=== PATIENT | female | born 2000 | race Caucasian/White ===

== ENCOUNTER 2021-04-19 03:07 | Emergency (ER) | payer BC, OTHER ==
[~2021-04-19] VITALS: Ht 149.9 cm; Wt 59.0 kg
[2021-04-19 03:55] LABS: BASOPHILS ABSOLUTE AUTO 0.04 K/mm3 (0.00-0.23); BASOPHILS PERCENT AUTO 0 % (0-2); EOSINOPHILS ABSOLUTE AUTO 0.09 K/mm3 (0.00-0.68); EOSINOPHILS PERCENT AUTO 1 % (0-6); Hemoglobin 14.5 g/dL (11.5-16.0); IMMATURE GRAN ABSOLUTE AUTO 0.06 K/mm3 (0.00-0.10); IMMATURE GRAN PERCENT AUTO 0 % (0-1); LYMPHOCYTES ABSOLUTE AUTO 0.72 K/mm3 (0.84-5.20); LYMPHOCYTES PERCENT AUTO 4 % (21-46); MONOCYTES ABSOLUTE AUTO 1.21 K/mm3 (0.16-1.47); MONOCYTES PERCENT AUTO 7 % (4-13); Mean Corpuscular HGB Conc 33.7 g/dL (31.5-36.5); Mean Corpuscular Volume 89 fL (80-100); Mean Platelet Volume 9.1 fL (9.1-12.4); NEUTROPHILS ABSOLUTE AUTO 14.54 K/mm3 (1.96-9.15); NEUTROPHILS PERCENT AUTO 87 % (41-73); Platelet Count 312 K/mm3 (150-400); RDW Coefficient Variation 11.9 % (11.7-14.2); RDW Standard Deviation 38.4 fL (35.1-46.3); Red Blood Cell Count 4.83 M/mm3 (3.80-5.20); White Blood Cell Count 16.66 K/mm3 (4.00-11.30)
[2021-04-19 04:15] LABS: Alanine Aminotransfer (ALT/SGP 32 U/L (12-78); Albumin, Blood 3.5 g/dL (3.4-5.0); Albumin/Globulin Ratio 0.9 (0.8-1.8); Alk Phos 102 U/L (50-136); Anion Gap 7 mmol/L (6-16); Aspartate Aminotrans (AST/SGOT 24 U/L (12-37); Bilirubin, Total 0.5 mg/dL (0.1-1.0); Blood Urea Nitrogen 12 mg/dL (8-24); Bun/Creatinine Ratio 20.3 (12.0-20.0); CO2, Blood 22 mmol/L (21-32); Calcium, Blood 8.5 mg/dL (8.5-10.1); Chloride, Blood 110 mmol/L (98-108); Creatinine, Blood 0.59 mg/dL (0.40-1.00); Glomerular Filtration Rate >60 (60-); Glucose, Blood 120 mg/dL (70-99); Magnesium, Blood 1.5 mg/dL (1.6-2.4); Sodium, Blood 139 mmol/L (136-145); Total Protein, Blood 7.5 g/dL (6.4-8.2)
[2021-04-19] MEDS ORDERED: Ondansetron Odt8 MG MM (04:41)
[2021-04-19] MEDS ORDERED: DICY20 PO (04:41)
[2021-04-19 04:46] LABS: Source, Urine Clean Catch
[2021-04-19 05:13] LABS: Appearance, Urine Clear (Clear); Bilirubin, Urine Neg (Neg); Blood, Urine 2+ (Neg); Color, Urine Yellow (P-Yellow); Glucose Qualitative, Urine Neg (Neg); Ketones, Urine Neg (Neg); Leukocyte Esterase, Urine Neg (Neg); Nitrite, Urine Neg (Neg); Protein, Urine Neg (Neg); Specific Gravity, Urine 1.005 (1.003-1.022); Urobilinogen, Urine NORM (Normal)
[2021-04-19 05:28] LABS: Bacteria Few /hpf; Squamous Epithelial Cells Few /hpf (Few); White Blood Cells, Urine Not Seen /hpf (0-5)
== END 2021-04-19 05:03 | disposition home or self-care (01) ==
LOC: ER 03:07
PROVIDERS: Emergency Medicine
DX: R11.2 Nausea with vomiting, unspecified (principal); R19.7 Diarrhea, unspecified; Z86.16 Personal history of COVID-19
CPT/HCPCS: 80053; 81001; 81025; 83605; 83735; 85025; 96372-59; 96374; 99283-25; J0500; J2405; J7030

== ENCOUNTER → 2022-08-07 | Outpatient (CLI) | payer BC, OTHER ==
[~2022-08-07] MED LIST: DICY20 PO; Ondansetron Odt8 MG MM
== END | disposition home or self-care (01) ==
LOC: LAB 09:09 → LAB SHORT 09:09
DX: J02.9 Acute pharyngitis, unspecified (principal)
CPT/HCPCS: 87081; 87147

== ENCOUNTER → 2023-02-15 | Outpatient (CLI) | payer BC | END | disposition home or self-care (01) | LOC: LAB 08:30 → LAB SHORT 08:30 | DX: R30.0 Dysuria (principal) | CPT/HCPCS: 87077; 87086; 87186 ==

== ENCOUNTER → 2023-09-18 | Outpatient (CLI) | payer BC | END | disposition home or self-care (01) | LOC: LAB 08:30 → LAB SHORT 08:30 | DX: R30.0 Dysuria (principal); R31.9 Hematuria, unspecified | CPT/HCPCS: 87077; 87086; 87186 ==

== ENCOUNTER → 2023-09-30 | Outpatient (CLI) | payer BC | LOC: LAB 09:20 → LAB SHORT 09:20 | DX: N39.0 Urinary tract infection, site not specified (principal) | CPT/HCPCS: 87086 ==

== ENCOUNTER → 2024-04-21 | Outpatient (CLI) | payer BC | LOC: LAB 13:33 → LAB SHORT 13:33 | DX: R30.0 Dysuria (principal) | CPT/HCPCS: 87086 ==

== ENCOUNTER → 2025-01-29 | Outpatient (CLI) | payer BC | END | disposition home or self-care (01) | LOC: LAB 15:00 → LAB SHORT 15:00 | DX: R10.2 Pelvic and perineal pain (principal) | CPT/HCPCS: 87086 ==

== ENCOUNTER → 2025-02-15 | Outpatient (CLI) | payer BC ==
[2025-02-16 10:58] LABS: Bacterial Vaginosis PCR Negative (NEGATIVE); Candida Group, PCR NOT DETECTED (NOT DETECT); Candida glabrata-krusei, PCR NOT DETECTED (NOT DETECT)
== END ==
LOC: LAB 15:10 → LAB SHORT 15:10
PROVIDERS: Nurse Practitioner Family
DX: R10.9 Unspecified abdominal pain (principal)
CPT/HCPCS: 81515; 87086

== ENCOUNTER 2025-06-07 05:59 | Day surgery (SDC) | payer BC ==
[2025-06-07] VITALS (22 sets, daily range): BP systolic 129–181; BP diastolic 70–106
[~2025-06-07] VITALS: Ht 152.4 cm; Wt 57.3 kg
[~2025-06-07 05:59] MED LIST changes: +Buspirone HCl15 MG PO; +LEVSOD75 PO; +PROG100 PO; +SERTRALINE HCL150 M1 PO
[2025-06-07] MEDS ORDERED: CeFAZolin Sodium 2,000 MG in NS 100 ML IV SCH ×2 (06:15→14:00)
[2025-06-07] MEDS ORDERED: Midazolam HCl 1MG / ML 2ML Vial ONE (07:03)
[2025-06-07] MEDS ORDERED: FentaNYL Citrate 50 MCG/ML 5 ML Injection ONE ×2 (07:03→08:42)
[2025-06-07] MEDS ORDERED: Bupivacaine 0.25% Epi 1:200000 30 ML Vial ONE (07:21)
[2025-06-07] MEDS ORDERED: Magnesium Sulfate 500 MG / ML 2ML Vial ONE (07:23)
[2025-06-07] MEDS ORDERED: Metoclopramide HCl 5MG / ML 2ML Vial ONE (07:24)
[2025-06-07] MEDS ORDERED: Ondansetron HCl 2 MG / ML 2ML Vial ONE ×2 (07:24→11:24)
[2025-06-07] MEDS ORDERED: HYDROmorphone HCl/Pf 1MG SYR IV PRN ×2 (07:35→11:05)
[2025-06-07] MEDS ORDERED: FentaNYL Citrate 50 MCG/ML 2 ML Injection IV PRN ×2 (07:35→07:40)
[2025-06-07] MEDS ORDERED: Metoclopramide HCl 5MG / ML 2ML Vial IV PRN (07:40)
[2025-06-07] MEDS ORDERED: Dexamethasone Sodium Phosphate 4 MG/ML 5ML VIAL IV PRN (07:40)
[2025-06-07] MEDS ORDERED: Ondansetron HCl 2 MG / ML 2ML Vial IV PRN ×2 (07:40→11:00)
[2025-06-07] MEDS ORDERED: Morphine Sulfate 4 MG/1 ML Injection IV PRN (07:40)
[2025-06-07] MEDS ORDERED: Prochlorperazine Edisylate 10 mg Vial IV PRN (07:40)
[2025-06-07] MEDS ORDERED: Rocuronium Bromide 10 MG/ML 5ML Injection IV ONE (08:45)
[2025-06-07] MEDS ORDERED: Sugammadex Sodium 200 MG/2ML SDV (100 MG/ML) ONE (10:38)
[2025-06-07] MEDS ORDERED: HYDROmorphone HCl/Pf 1MG SYR ONE (10:58)
[2025-06-07] MEDS ORDERED: OxyCODONE 5 mg/Acetamin 325 mg TABLET PO PRN (11:00)
[2025-06-07] MEDS ORDERED: Naloxone HCl 0.4MG / ML 1ML Vial IV PRN (11:05)
[2025-06-07] MEDS ORDERED: FentaNYL Citrate 50 MCG/ML 2 ML Injection ONE ×2 (11:07→11:32)
[2025-06-07] MEDS ORDERED: Ketorolac Tromethamine 30mg Vial IV PRN (11:15)
[2025-06-07] MEDS ORDERED: Dexamethasone Sodium Phosphate 4 MG/ML 5ML VIAL ONE (11:22)
[2025-06-07] MEDS ORDERED: Midazolam HCL 1 MG/ML 5MLVIAL ONE (11:49)
[2025-06-07] MEDS ORDERED: Labetalol HCL 5 MG/ML 4ML Injection (Single Dose) ONE (11:49)
--- NOTE | 2025-06-07 12:29 | NUR ---
POST OP: PT RETURNED TO ROOM POST LAVH. ABD INCISIONS X5 CLEAN AND DRY. PT HYPERTENSIVE, MEDICATED IN PACU PRIOR TO TRANSFER. KPAD GIVEN. STARTED ON SIPS CLEARS. IV INFUSING PER ORDERS. PT HAD SMALL VOID. NO VAG BLEEDING NOTED. AMB WITH SBA. SIG OTHER AT BEDSIDE, ATTENTIVE. WILL CONT TO MONITOR AND TREAT PER ORDERS.
--- NOTE | 2025-06-07 14:07 | NUR ---
BEDSIDE REPORT GIVEN TO ACCEPTING RN. FLUIDS INFUSING. PT SLEEPING WITHOUT ANY S/S PAIN AFTER MEDICATED WITH PRN PERCOCET. PT TOLERATED ENSURE FOR LUNCH. PLAN FOR DC HOME TODAY.
[2025-06-07] MEDS ORDERED: Percocet 5-3251 EACH PO (15:42)
[2025-06-07] MEDS ORDERED: PROM25 PO (15:43)
[2025-06-07] MEDS ORDERED: SIME80CH PO (15:48)
[2025-06-07] MEDS ORDERED: TRANSDERM-SCOP1 EA13 TD (15:48)
--- NOTE | 2025-06-07 17:49 | NUR ---
DISCHARGE NAUSEA PASSED w/ EMESIS x 1. ABLE TO KEEP FLUIDS DOWN AFTER NAP. PAIN REASONABLY CONTROLLED. YELLOW URINE. REQUESTS TO GO HOME. ESCORTED OUT VIA WC.
== END 2025-06-07 17:50 | disposition home or self-care (01) ==
LOC: ORSCMMR 05:59 → SURS 05:59 → ORSCMMR 06:00 → ORD 07:30 → ORSCMMR 07:30 → SURS 10:47 → ORSCMMR 17:50
PROVIDERS: Obstetrics & Gynecology
PROC: 0UT9FZZ Resection of Uterus, Via Natural or Artificial Opening With Percutaneous Endoscopic Assistance (ICD-10-PCS; principal; 2025-06-07 07:30)
PROC: 0U5F4ZZ Destruction of Cul-de-sac, Percutaneous Endoscopic Approach (ICD-10-PCS; principal; 2025-06-07 07:30)
PROC: 0UT7FZZ Resection of Bilateral Fallopian Tubes, Via Natural or Artificial Opening With Percutaneous Endoscopic Assistance (ICD-10-PCS; principal; 2025-06-07 07:30)
DX: N80.352 Endometriosis of the left pelvic sidewall, unspecified depth (principal); N94.10 Unspecified dyspareunia; N94.6 Dysmenorrhea, unspecified; R10.2 Pelvic and perineal pain; D25.9 Leiomyoma of uterus, unspecified; N72 Inflammatory disease of cervix uteri
CPT/HCPCS: 86850; 86900; 86901; 88307; A9270; J0690; J1100; J1171; J2250; J2270; J2405; J2704; J2765; J3010; J3475; J7120